=== PATIENT | male | born 1975 | race Two or more races ===

== ENCOUNTER 2023-01-26 21:03 | Emergency (ER) | payer MEDICAID, OTHER ==
[~2023-01-26] VITALS: Ht 167.6 cm; Wt 120.4 kg
[2023-01-26 23:20] VITALS: BP 120/62
[2023-01-26] MEDS: HYDROcodone-ACET 5/325MG TAB PO ONE (23:24)
[2023-01-26] MEDS: IBUPROFEN 800 MG TAB PO ONE (23:24)
[2023-01-26] MEDS ORDERED: ACET-1158 PO (23:34)
[2023-01-26] MEDS ORDERED: IBUP800T26 PO (23:34)
== END 2023-01-26 23:39 | disposition home or self-care (01) ==
LOC: ER 21:03
DX: S93.602A Unspecified sprain of left foot, initial encounter (principal); E66.01 Morbid (severe) obesity due to excess calories; Z68.41 Body mass index [BMI] 40.0-44.9, adult; X58.XXXA Exposure to other specified factors, initial encounter; Y93.64 Activity, baseball; Y92.89 Other specified places as the place of occurrence of the external cause; Y99.8 Other external cause status
CPT/HCPCS: 73630